=== PATIENT | male | born 1930 | race Caucasian/White ===

== ENCOUNTER 2018-05-19 05:31 | Day surgery (SDC) | payer OTHER ==
[~2018-05-19] VITALS: Ht 172.7 cm; Wt 81.7 kg
--- NOTE | ~2018-05-19 | O ---
[facility] [place] [address] OPERATIVE REPORT Name: HEINJAMESON Room #: 150-10 [facility]..#: [id number] Admission: 05/19/18 Attend Phys: Boyd Duque MD Discharge: Date of : [birth year] Report #: [id number] THIS REPORT FOR: //name// CC: [facility] kizzy Duque at [facility] Tuan Gillespie at the [facility] Boyd Duque DATE OF SERVICE: 05/19/2018 SURGEON: Boyd Duque M.D. [employer] CONSULTANT: None. PREOPERATIVE DIAGNOSIS: Bilateral lower lid ectropion. POSTOPERATIVE DIAGNOSIS: Bilateral lower lid ectropion. OPERATION PERFORMED: Bilateral lower lid ectropion repair. ANESTHESIA: Local with IV sedation. COMPLICATIONS: None. INDICATIONS FOR PROCEDURE: This patient has bilateral acquired lower lid ectropion with chronic tearing and discharge. The current procedures are undertaken in order to improve the patient's visual function, lacrimal outflow, and level of comfort. Informed consent was obtained to include but not limit to the risk of loss of vision, bleeding, infection, scarring, failure to improve the problem and need for further surgery. DESCRIPTION OF OPERATION: The patient was taken to the operating room where 2% Xylocaine with epinephrine mixed with equal parts of 0.75% Marcaine with Wydase was administered transcutaneously and transconjunctivally to each lower lid and lateral canthal area. The patient was then prepped and draped in the usual sterile fashion. A Mohini clamp was then used to clamp the left lateral canthus following which a sharp canthotomy and cantholysis were performed. The tarsal strip was prepared laterally, removing the lash bearing portion of the redundant lid margin and the redundant tarsal plate. Hemostasis was achieved with a monopolar cautery, as it was throughout the case. The tarsal strip was then secured to the internal portion of the lateral orbital tubercle with two interrupted 5-0 Prolene sutures. The lateral canthal angle was sharply reformed as the subcutaneous structures and the skin were closed with multiple interrupted 6-0 plain gut sutures. Attention was then turned to the right side where the same procedure was [facility] [address] [place] [address] OPERATIVE REPORT Name: JAMESON HEIN Room #: 150-10 [facility].#: [id number] Admission: 05/19/18 Attend Phys: Boyd Duque MD Discharge: Date of : [birth year] Report #: [id number] performed. The wounds were cleaned and dressed with ophthalmic antibiotic ointment. The patient was then transported to the recovery area, having tolerated the procedure well with no anesthetic or operative complications being noted. By: [id number] Boyd Duque MD /nt
[~2018-05-19 05:31] MED LIST: 24 HOUR ALLERG9.9 ML NASAL; ARICEPT10 M1 PO; CARDIZEM CD 18180 M3 PO; CELEXA40 MG PO; COUMADIN 5 MG TA5 M1 PO; FLOMAX0.4 MG PO; GABAPENTIN 100100 MG PO; LIPITOR40 MG PO; NAMENDA 5 MG TAB5 M1 PO; NITROGLYCERIN0.4 MG SUBLING; PROSCAR 5MG TABL5 MG PO; SYMBICORT160 MCG/4. INH; SYNTHROID75 MCG PO; TRAZODONE HCL50 MG PO; VENTOLIN HFA INH8 GM INH; [UNRECOGNIZED DRUG - OTHER] OPHTHALMIC
[2018-05-19 07:30] VITALS: BP 147/59
[2018-05-19 07:34] LABS: INR 1.1; PROTIME 11.8 Seconds (9.3-11.4)
== END 2018-05-19 09:05 | disposition home or self-care (01) ==
LOC: OR 05:31 → TBA 05:32 → OR 07:34
PROVIDERS: Ophthalmology
DX: H02.105 Unspecified ectropion of left lower eyelid (principal); H02.102 Unspecified ectropion of right lower eyelid; I10 Essential (primary) hypertension; J43.9 Emphysema, unspecified; F32.9 Major depressive disorder, single episode, unspecified; F41.9 Anxiety disorder, unspecified; F03.90 Unspecified dementia, unspecified severity, without behavioral disturbance, psychotic disturbance, mood disturbance, and anxiety; E78.00 Pure hypercholesterolemia, unspecified; Z90.5 Acquired absence of kidney; Z86.73 Personal history of transient ischemic attack (TIA), and cerebral infarction without residual deficits; Z87.891 Personal history of nicotine dependence; Z98.890 Other specified postprocedural states; Z79.899 Other long term (current) drug therapy; Z88.2 Allergy status to sulfonamides
CPT/HCPCS: 50010; 50101; 50386; 50398; 51636; 56527; 56531; 62110; 62850; 70005